=== PATIENT | female | born 1995 | race African-American/Black ===

== ENCOUNTER 2018-05-27 17:31 | Emergency (ER) | payer BC ==
[~2018-05-27] VITALS: Ht 167.6 cm; Wt 104.3 kg
--- OUTSIDE RECORDS SUMMARY | 2018-05-27 17:33 | XMS REPORT | Summary of Care ---
Author Author EB Oconnell, RAYMOND Organization Unknown Address Unknown Phone Unavailable Care Team Providers Care Seo Associate Name Role Phone R.N. Unavailable Unavailable Unavailable Unavailable Functional Status Name Dates Details Functional status health issues are not documented Status: Name Dates Details Cognitive status health issues are not documented Status: Problems Name Dates Details Encounter for confirmation of test result with physical examination (V72.40, Z32.00) Status: Active Supervision of normal (V22.1, Z34.90) Status: Active Postoperative examination (V67.00, Z09) Status: Active Screening for STDs (sexually transmitted diseases) (V74.5, Z11.3) Status: Active Medications Name Dates Details No Reported Medications R.N. Active Allergies and Adverse Reactions Name Dates Details No Known Drug Allergies (Allergy) Status: Active Past Medical History Name Dates Details History of No significant past medical history Status: Resolved Procedures Procedure Dates Details [QLH] HCG, TOTAL, QN Date: 22-Oct-2017 History of Dilation and curettage Completed History of Surgically Induced - By Dilation And Curettage Completed Immunization Name Dates Details Immunizations not documented Family History Name Dates Details No pertinent family history (V49.89, Z78.9) Comments: Family History Status: Active Social History Name Dates Details - Status: Name Dates Details Never smoker Vital Signs Date Test Result Details [id number] BP Systolic 110 mm[Hg] Status: Comments: Location: RUE; Position: Sitting BP Diastolic 76 mm[Hg] Status: Comments: Location: RUE; Position: Sitting Height 67 in Status: Weight 222 lb Status: Body Mass Index Calculated 34.77 kg/m2 Status: Body Surface Area Calculated 2.11 m2 Status: Temperature 99.5 f Status: Comments: Method: Oral Heart Rate 77 /min Status: Results Date Description Value Details [id number] [O] Urine Test (in office) Test, Urine Positive (Abnormal) [id number]:00 . [facility] - GC/Chlamydia Comments: Department of Pathology & Laboratory Medicine For: MSB [address] [place] [address] [address] Phone: [phone] Email: [email or web address] LMP: GC/ChlamydiaGC~NegativeChlamydia~Negative~Testing is performed using FDA-approved APTIMA COMBO 2 Assay on the Algorithmia system(i.e., Track Repair Laborer-mediated amplification of rRNA followed by target- specifichybridization and dual kinetic fluorescence detection). This assay is designed for thedetection of Chlamydia trachomatis (CT) and Neisseria gonorrhoeae (GC) in femaleendocervical and vaginal, male urethral, and female and male urine specimens. CT/GCviability and/or infectivity can't be inferred from a positive test result since targetRNA may persist in the absence of infectious microorganisms. A negative test doesn'texclude the possibility of infection due to possible improper specimencollection/transport/handling (inadequate specimen collection), presence of inhibitor(s),concurrent antibiotic therapy, or presence of insufficient RNA for detection. The testresult must be interpreted in conjunction with other laboratory and clinical data. Theassay is not intended to replace cervical exams and endocervical specimens for diagnosisof female urogenital infections. The assay is not intended for the evaluation ofsuspected sexual abuse or for other medicao-legal indications. For those patients forwhom a false positive result may have adverse psycho-social impact, the CDC recommendsretesting. The assay has been validated by the [facility] Department of Pathology and Laboratory Medicine.Felicity Olivares MD, PhD GC/Chlamydia REPORT Plan of Care Name Dates Details Planned Observations Planned Goals not documented Planned Encounters Appointment; RAYMOND PARSON M.D. On: 26-Nov-2017 15:00 Instructions Name Dates Details Instructions not documented Encounters Appointment; HONEY YUEN M.D. Encounter Diagnosis: Problem not documented On: 27-Jun-2016 14:00 Appointment; RAYMOND PARSON M.D. Encounter Diagnosis: Problem not documented On: 22-Oct-2017 11:30
--- OUTSIDE RECORDS SUMMARY | 2018-05-27 17:33 | XMS REPORT | Clinical Summary ---
Author Author [facility] Address Unknown Phone Unavailable Care Team Providers Care Motion Picture Director Name Role Phone Pcp, No PCP Unavailable Allergies No Known Allergies Medications End Date Status Medication Sig Dispensed Refills Start Date 12/29/2017 Discontinued doxycycline (DOXY) 100 MG Take 100 mg 0 tablet by mouth 2 (two) times daily. 12/25/2017 metroNIDAZOLE (FLAGYL) Take 1 tablet 14 tablet 0 500 MG tablet (500 mg 8 total) by mouth 2 (two) times daily for 7 days. 01/01/2018 fluconazole (DIFLUCAN) Take 1 tablet 3 tablet 0 150 MG tablet (150 mg 8 total) by mouth daily for 3 days. 01/08/2018 nystatin (MYCOSTATIN) Take 5 mLs 60 mL 0 100,000 unit/mL (500,000 8 suspension Units total) by mouth 4 (four) times daily for 10 days Swish and spit every 6 hours.. 02/01/2018 metroNIDAZOLE (FLAGYL) Take 1 tablet 30 tablet 0 500 MG tablet (500 mg 8 total) by mouth 3 (three) times daily for 10 days. 02/01/2018 fluconazole (DIFLUCAN) Take 1 tablet 10 tablet 0 200 MG tablet (200 mg 8 total) by mouth daily for 10 days. Active Problems Not on file Encounters Care Team Description Date Type Specialty Oh Rubi DO Vaginal discharge (Primary Dx); Obesity (BMI 30-39.9); Essential hypertension; BV (bacterial vaginosis) 01/22/2018 Emergency Emergency Medicine 01/22/2018 Travel María Elena Quezada MD Throat pain in adult (Primary Dx); Thrush, oral 12/29/2017 Emergency Emergency Medicine Leslie Diego MD Cervicitis (Primary Dx); Vaginal discharge 12/18/2017 Emergency Emergency Medicine after 05/26/2017 Social History Date Tobacco Use Types Packs/Day Years Used Never Smoker Alcohol Use Drinks/Week oz/Week Comments No Sex Assigned at Date Recorded Not on file Industry Job Start Date Occupation Not on file Not on file Not on file Travel End Travel History Travel Start No recent travel history available. Last Filed Vital Signs Time Taken Vital Sign Reading 01/22/2018 2:37 PM CDT Blood Pressure 136/78 01/22/2018 2:37 PM CDT Pulse 79 01/22/2018 2:37 PM CDT Temperature 36.7 C (98 F) 01/22/2018 2:37 PM CDT Respiratory Rate 16 01/22/2018 2:37 PM CDT Oxygen Saturation 100% - Inhaled Oxygen - Concentration 01/22/2018 2:37 PM CDT Weight 104.3 kg (230 lb) 12/18/2017 2:39 PM CDT Height 167.6 cm (5' 6") 01/22/2018 2:37 PM CDT Body Mass Index 37.12 Plan of Treatment Not on file Procedures Comments Procedure Name Priority Date/Time Associated Diagnosis SCREEN, URINE STAT 01/22/2018 3:11 PM CDT URINALYSIS W/ MICROSCOPIC STAT 01/22/2018 3:11 PM CDT RAPID STREP A SCREEN STAT 12/29/2017 8:19 PM CDT SCREEN, URINE STAT 12/18/2017 2:58 PM CDT URINALYSIS W/ REFLEX STAT 12/18/2017 URINE CULTURE 2:58 PM CDT STD PANEL - CT/GC RNA STAT 12/18/2017 2:58 PM CDT after 05/26/2017 Results * Screen, urine (01/22/2018 3:11 PM CDT) Only the most recent of 2 results within the time period is included. Preg Test, Ur Negative [facility] Specimen Urine - Urine, Clean Catch Performing Organization Address City/State/Zipcode Phone Number [facility] [address] [place] [address] [facility] * Urinalysis w/Microscopic (01/22/2018 3:11 PM CDT) Color, UA Yellow [facility] Clarity, UA Slightly Hazy [facility] Specific [place], UA 1.015 1.001 - 1.035 [facility] pH, UA 7.0 5.0 - 8.0 [facility] Protein, UA Negative Negative [facility] Glucose, UA Negative Negative [facility] Ketones, UA Negative Negative [facility] Bilirubin, UA Negative Negative [facility] Blood, UA Negative Negative [facility] Nitrite, UA Negative Negative [facility] Leukocytes, UA Negative Negative [facility] Urobilinogen, UA 1.0 0.2 - 1.0 mg/dL [facility] Bacteria, UA Few [facility] RBC, UA <5 /HPF [facility] WBC, UA 5-10 /HPF [facility] SQUAMOUS EPITHELIAL 10-20Comment: Clue cells seen. /HPF [facility] Specimen Source [facility] Specimen Urine - Urine, Clean Catch Performing Organization Address City/[facility]/Zipcode Phone Number [facility] [address], [place] [id number] [facility] * Rapid Strep A screen (12/29/2017 8:19 PM CDT) Strep A Ag Negative Negative [facility] Specimen Throat - Throat Performing Organization Address [facility] Phone Number [address] [phone] [facility] * Urinalysis w/Microscopic + Reflex to Culture (12/18/2017 2:58 PM CDT) Color, UA Yellow [facility] Clarity, UA Clear [facility] Specific [place], UA 1.020 1.001 - 1.035 [facility] pH, UA 7.5 5.0 - 8.0 [facility] Protein, UA Negative Negative [facility] Glucose, UA Negative Negative [facility] Ketones, UA Trace (A) Negative [facility] Bilirubin, UA Negative Negative [facility] Blood, UA Negative Negative [facility] Nitrite, UA Negative Negative [facility] Leukocytes, UA Negative Negative [facility] Urobilinogen, UA 2.0 (H) 0.2 - 1.0 mg/dL [facility] Bacteria, UA Few [facility] RBC, UA <5 /HPF [facility] WBC, UA <5 /HPF [facility] SQUAMOUS EPITHELIAL 5-10Comment: Clue cells seen. /HPF [facility] Specimen Source [facility] Specimen Urine - Urine, Clean Catch Performing Organization Address City/[facility] Phone Number [facility] [address] [place] [address] [facility] * STD Panel - CT/GC RNA (12/18/2017 2:58 PM CDT) C. trachomatis RNA, TMA NOT DETECTED [facility] N. gonorrhoeae RNA, TMA NOT DETECTED [facility] Comment: [facility] REFERENCE RANGE:NOT DETECTED This test was performed using the APTIMA(R) COMBO2 Assay (GEN-PROBE). Specimen Genital - Cervix, Endocervical Narrative Performed At Performing Lab [facility] [address] [place] [address] Mirian Marcus MD Performing Organization Address City/State/[facility] Phone Number [facility], [address] [place], [place] [facility] [address] after 05/26/2017 Insurance Payer Benefit Subscriber ID Type Phone Address Plan / Group BLUE CROSS/BLUE SHIELD BCBS PPO xxxxxxxxxxxx PPO [phone] [id number] [place] [address] CHOICE MEDICAID MEDICAID xxxxxxxxx Medicaid [place]
--- OUTSIDE RECORDS SUMMARY | 2018-05-27 17:33 | XMS REPORT ---
Author Author [facility] Address Unknown Phone Unavailable Care Team Providers Care Senior Administrative Services Officer Name Role Phone ER, PHYSICIAN PP Unavailable ALEJANDRO ECHAVARRIA Unavailable Unavailable MATHEW BUCK Unavailable Unavailable ANN SCHMIDT Unavailable Unavailable Coral OWUSU Unavailable Unavailable Problems This patient has no known problems. Allergies, Adverse Reactions, Alerts This patient has no known allergies or adverse reactions. Medications This patient has no known medications. Encounters Start Date/Time End Date/Time Encounter Type Admission Type Attending [facility] Care Department Encounter ID 2016-12-01 20:17:00 2016-12-01 20:17:00 Emergency E [facility] [id number] 2016-09-21 13:42:00 2016-09-21 13:42:00 Emergency E [facility] [id number] Results Test Description Test Time Test Comments Text Results Atomic Results Result Comments URINALYSIS W/ MICROSCOPIC 2018-01-22 15:21:00 COLOR (BEAKER) (test uwgn=868) Yellow CLARITY (BEAKER) (test xqer=745) Slightly Hazy SPECIFIC GRAVITY UA (BEAKER) (test xcow=600) 1.015 1.001-1.035 PH UA (BEAKER) (test oagq=337) 7.0 5.0-8.0 PROTEIN UA (BEAKER) (test micj=904) Negative Negative GLUCOSE UA (BEAKER) (test jooj=509) Negative Negative KETONES UA (BEAKER) (test nsaw=945) Negative Negative BILIRUBIN UA (BEAKER) (test noec=820) Negative Negative BLOOD UA (BEAKER) (test bpcz=445) Negative Negative NITRITE UA (BEAKER) (test eifj=528) Negative Negative LEUKOCYTE ESTERASE UA (BEAKER) (test brvt=533) Negative Negative UROBILINOGEN UA (BEAKER) (test oegk=406) 1.0 mg/dL 0.2-1.0 BACTERIA (BEAKER) (test hnin=713) Few RBC UA-MANUAL (BEAKER) (test fwdn=0155) <5 /HPF WBC UA-MANUAL (BEAKER) (test tkrg=2186) 5-10 /HPF SQUAMOUS EPITHELIAL MANUAL (BEAKER) (test opzi=8212) 10-20 /HPF Clue cells seen. SOURCE(BEAKER) (test hphb=0235) SCREEN, [id number] 15:19:00* Test Item Value Reference Range Comments TEST URINE (BEAKER) (test xues=701) Negative RAPID STREP A [id number] 20:43:00* Test Item Value Reference Range Comments STREP A ANTIGEN (BEAKER) (test hrve=976) Negative Negative URINALYSIS W/ REFLEX URINE [id number] 15:15:00* Test Item Value Reference Range Comments COLOR (BEAKER) (test uvbc=004) Yellow CLARITY (BEAKER) (test bjux=295) Clear SPECIFIC GRAVITY UA (BEAKER) (test kfbz=162) 1.020 1.001-1.035 PH UA (BEAKER) (test bsrr=935) 7.5 5.0-8.0 PROTEIN UA (BEAKER) (test ekln=717) Negative Negative GLUCOSE UA (BEAKER) (test srct=266) Negative Negative KETONES UA (BEAKER) (test kvut=732) Trace Negative BILIRUBIN UA (BEAKER) (test qkry=882) Negative Negative BLOOD UA (BEAKER) (test kagj=380) Negative Negative NITRITE UA (BEAKER) (test auan=766) Negative Negative LEUKOCYTE ESTERASE UA (BEAKER) (test fvau=298) Negative Negative UROBILINOGEN UA (BEAKER) (test tfkl=173) 2.0 mg/dL 0.2-1.0 BACTERIA (BEAKER) (test tqzs=089) Few RBC UA-MANUAL (BEAKER) (test hdhe=6860) <5 /HPF WBC UA-MANUAL (BEAKER) (test jqsk=0900) <5 /HPF SQUAMOUS EPITHELIAL MANUAL (BEAKER) (test vwsq=7233) 5-10 /HPF Clue cells seen. SOURCE(BEAKER) (test bznq=2475) SCREEN, [id number] 15:10:00* Test Item Value Reference Range Comments TEST URINE (BEAKER) (test chwa=060) Negative Chlamydia/GC [id number] 09:04:00* Test Item Value Reference Range Comments Chlamydia trachomatis, MEGAN (test uxcd=485470) Negative Negative Neisseria gonorrhoeae, MEGAN (test mplm=373728) Negative Negative Urinalysis [id number] 03:48:00* Test Item Value Reference Range Comments Color (test code=COLOR) Yellow Yellow,Straw,Pl yellow Clarity (test code=CLAR) Sl Cloudy Clear Specific [place] (test code=SPGR) 1.026 1.001-1.035 pH (test code=PH) 5.0 5.0-9.0 Ketone (test code=KET) 15 mg/dL Negative Glucose (test code=GLUCUR) Negative mg/dL Negative Protein (test code=PROT) Negative mg/dL Negative Bilirubin (test code=BILI) Negative mg/dL Negative Occult Blood (test code=UDOB) Negative Negative Urobilinogen (test code=UROB) 0.2 mg/dL 0.2-1.0 Nitrite (test code=NIT) Negative Negative Leuk Esterase (test code=LEUK) Small Negative Micros Exam (test code=MEXAM) Indicated Epithelial Cells (test code=EPI) 20-29 /LPF 0-30 WBC, Urine (test code=UWBC) 2-5 /HPF 0-5 RBC, Urine (test code=URBC) 0-3 /HPF 0-5 Bacteria (test code=BACT) Few /HPF BHCG, Urine, [id number] 02:53:00* Test Item Value Reference Range Comments Preg Qual [Ur] (test code=HUHCG) Negative Negative Smear, Wet [id number] 02:49:00* Test Item Value Reference Range Comments WBC (test code=JWBC) FEW EPITHELIAL CELLS (test code=JEPITH) FEW BACTERIA (test code=JBACTERIA) MODERATE CLUE CELLS (test code=JCLUE) FEW YEAST (test code=JYEAST) NONE TRICHOMONAS (test code=JTRICH) NONE XR RIBS W PA CHEST 4+V, [id number] 23:00:14XR RIBS W PA CHEST 4+V, BILLOCATION: R16 INDICATION: Pain COMPARISON: NoneFINDINGS: Multiple views of the right and left ribs show no evidence offracture ,subluxation loose or foreign bodies present.Visualized portions of the chest show no evidence of acutecardiopulmonary disease.IMPRESSION:1. No acute osseous abnormalities.
--- OUTSIDE RECORDS SUMMARY | 2018-05-27 17:33 | XMS REPORT | Clinical Summary ---
Author Author [facility] Address Unknown Phone Unavailable Care Team Providers Care Marketing Senior Recruiter Name Role Phone Asked, No Pcp PCP Unavailable Allergies No Known Allergies Medications No known medications Active Problems No known active problems Social History Date Tobacco Use Types Packs/Day Years Used Never Smoker Smokeless Tobacco: Never Used Alcohol Use Drinks/Week oz/Week Comments No Sex Assigned at Date Recorded Not on file Industry Job Start Date Occupation Not on file Not on file Not on file Travel End Travel History Travel Start No recent travel history available. Last Filed Vital Signs Not on file Plan of Treatment Health Maintenance Due Date Last Done Comments CHLAMYDIA SCREENING 2011 CERVICAL CANCER SCREENING 2016 INFLUENZA VACCINE 10/23/2017 Results Not on fileafter 05/26/2017 Insurance Payer Benefit Subscriber ID Type Phone Address Plan / Group [facility] xxxxxxxxx HMO PLAN [facility] (Home) [place] [address] Advance Directives Patient has advance care planning documents on file. For more information, navi dow contact: Sridhar Armendariz [address] [place] [address]
[2018-05-27] MEDS ORDERED: ONDANSETRON HCL 4 MG ORAL DISINTEGRATING TAB PO ONE (17:45)
[2018-05-27 18:32] LABS: CLARITY,URINE HAZY (CLEAR); COLOR,URINE YELLOW (YELLOW)
[2018-05-27 18:33] LABS: BILIRUBIN,URINE NEGATIVE (NEGATIVE); KETONES,URINE NEGATIVE (NEGATIVE); LEUKOCYTE ESTERASE ,URINE NEGATIVE (NEGATIVE); NITRITE,URINE NEGATIVE (NEGATIVE); PROTEIN,URINE DIPSTICK NEGATIVE (NEGATIVE); URINE UROBILINOGEN 0.2 mg/dL (0.2 - 1)
[2018-05-27 18:37] LABS: PREGNANCY TEST, URINE POSITIVE (NEGATIVE)
[2018-05-27 18:42] LABS: BACTERIA,URINE MANY /HPF; EPITHELIAL CELLS,URINE MODERATE /LPF; TRANSITIONAL EPI CELLS,URINE FEW
--- NOTE | 2018-05-27 18:58 | Diagnostic Imaging Report ---
EXAM: First Trimester Obstetric Pelvic Ultrasound INDICATION: ^poss preg bleeding r/o ectopic etc COMPARISON: None TECHNIQUE: Grayscale transverse and sagittal transabdominal and transvaginal images were obtained of the pelvis. Transvaginal imaging was medically necessary to better evaluate the endometrium, adnexa, and fetus. CLINICAL HISTORY: 23 year old A0 Last menstrual period: 03/25/2018 Clinical gestational age: FINDINGS: Uterus: Orientation: Normal Size: 10.5 x 5.8 x 7.3 cm, enlarged Mass: None Cervix: Normal. Close. Gestational Sac: Location: Intrauterine Average sac diameter: 3.7 cm Estimated sonographic GA: 9 weeks 0 days Appearance: Normal in contour Subchorionic hemorrhage: None Yolk sac: Normal Embryo/Fetus: [place] rump length: 2.1 cm Estimated sonographic GA: 8 weeks 5 days Cardiac activity: 177 bpm Right ovary Size: 3.5 x 2.7 x 2.7 cm Mass/Cyst: 2.1 x 1.4 x 1.6 cm corpus luteum. Left ovary Size: 3.2 x 2.0 x 3.1 cm Mass/Cyst: None Cul-de-sac: No free fluid IMPRESSION: 1. Viable intrauterine : Routine followup. 2. Estimated sonographic gestational age: 8 weeks 5 days by crown-rump length. CLASSIFICATION Viable: can potentially result in a liveborn baby Visualized embryo with FHT Nonviable: Findings diagnostic of failure * Ectopic * CRL >= 7 mm and no FHT * MSD >= 25 mm and no embryo * No FHT >= 2 weeks after US showed GS w/o YS * No FHT >= 11 days after US showed GS w/ YS Intrauterine of uncertain viability: Intrauterine GS with no FHT and no definite findings of failure of unknown location: Positive urine or serum test and no IUP or ectopic on US Diagnostic Criteria for Nonviable Early in the First Trimester N Engl J Med 2013;369:1443-51. DOI: [id number] Signed by: Dr. Juan Sanchez M.D. on 05/27/2018 6:54 PM
[2018-05-27 19:02] LABS: BASOPHILS % 0.1 % (0.0-1.0); EOSINOPHILS % 0.3 % (0.0-6.0); HEMATOCRIT 35.8 % (34.2-44.1); HEMOGLOBIN 12.6 g/dL (12.0-16.0); LYMPHOCYTES # (AUTO) 2.6 (1.0-3.2); LYMPHOCYTES % 27.7 % (18.0-39.1); MEAN CORPUSCULAR HEMOGLOBIN 32.3 pg (28-32); MEAN CORPUSCULAR HGB CONC 35.2 g/dL (31-35); MEAN CORPUSCULAR VOLUME 91.8 fL (81-99); MONOCYTES # (AUTO) 0.7 (0.2-0.8); MONOCYTES % 7.2 % (4.4-11.3); NEUTROPHILS # (AUTO) 5.9 (2.1-6.9); NEUTROPHILS % 64.5 % (38.7-80.0); PLATELET COUNT 341 x10e3/uL (140-360); RED CELL DISTRIBUTION WIDTH 11.9 % (11.7-14.4)
[2018-05-27 19:23] LABS: ALANINE AMINOTRANSFERASE 10 IU/L (0-55); ALBUMIN 3.5 g/dL (3.5-5.0); ALBUMIN/GLOBULIN RATIO 0.9 (0.8-2.0); ALKALINE PHOSPHATASE 51 IU/L (40-150); ANION GAP 11.8 mmol/L (8-16); BLOOD UREA NITROGEN < 5 mg/dL (7-26); CALCIUM 9.7 mg/dL (8.4-10.2); CARBON DIOXIDE 24 mmol/L (22-29); CHLORIDE 105 mmol/L (98-107); CREATININE, SERUM 0.68 mg/dL (0.57-1.11); EST GLOMERULAR FILTRATION RATE > 60 ML/MIN (60-); GLUCOSE 85 mg/dL (74-118); POTASSIUM 3.8 mmol/L (3.5-5.1); SODIUM 137 mmol/L (136-145)
[2018-05-27 19:24] LABS: BUN/CREATININE RATIO 7 (6-25)
[2018-05-27 19:48] LABS: HCG,QUANTITATIVE 181559.92 mIU/mL (0-10)
== END 2018-05-27 20:41 | disposition home or self-care (01) ==
LOC: ER 17:31
DX: O20.9 Hemorrhage in early pregnancy, unspecified (principal); O23.41 Unspecified infection of urinary tract in pregnancy, first trimester; R11.2 Nausea with vomiting, unspecified
CPT/HCPCS: 36415; 76817; 76830; 80053; 81001; 81025; 84702; 85025; 86900; 87086